=== PATIENT | male | born 1975 | race Hispanic/Latino ===

== ENCOUNTER 2025-04-10 22:30 | Emergency (ER) | payer BC ==
[~2025-04-10] VITALS: Ht 175.3 cm; Wt 102.1 kg
--- NOTE | 2025-04-10 22:33 | NUR ---
COVID AND FLU SWABS COLLECTED AND SENT
[2025-04-10 23:08] LABS: SARS-CoV-2, RNA, NAAT NEGATIVE SARS CoV-2 (NEGATIVE)
[2025-04-10 23:14] LABS: INFLUENZA TYPE A Negative For Type A (NEGATIVE); INFLUENZA TYPE B Negative For Type B (NEGATIVE)
--- NOTE | 2025-04-10 23:22 | ERN ---
ED Note History of Present Illness Stated Complaint: COUGH, CHEST CONGESTION Chief Complaint: Cough Time Seen by MD: 22:33 Time Seen by Midlevel: 22:33 Dictation: The Patient is a 49-year-old male with no significant past medical history who presents to the emergency department with complaints of nasal congestion, productive cough. Patient reports green sputum. Patient reports symptoms has been going on for past three days. Reports some shortness of breath. Reports he had fevers yesterday but no fevers today. Allergies: Coded Allergies: No Known Allergies (Unverified Allergy, Unknown, 04/10/25) Past Medical History Past Medical History: No Pertinent History Surgical History: None RN Note Reviewed/Agreed w/PFSH: Yes Review of System Dictation Constitutional: Negative for fever,chills, and weight loss Eyes: Negative for injury, pain,redness, and discharge ENT: Negative for injury,pain or swelling positive for nasal congestion Cardiovascular: Negative for chest pain, palpitations, and edema Respiratory: Negative for wheezing, positive for shortness of breath, cough Abdomen/GI: Negative for abdominal pain, nausea, vomiting, diarrhea, and constipation Back: Negative for injury and pain : Negative for injury, bleeding and discharge MS/Extremity: Negative for injury and deformity Skin: Negative for rash, and discoloration Neuro: Negative for headache, weakness, numbness, tingling, and seizure Psych: Negative for suicide ideation, homicidal ideation, and hallucinations Initial Vital Sign VS Vital Signs Date Time Temp Pulse Resp B/P (MAP) Pulse Ox O2 Delivery O2 Flow Rate FiO2 04/10/25 22:32 98.2 93 20 141/91 95 Room Air 04/10/25 23:38 0 21 Physical Exam Dictation Vital Signs reviewed General Appearance: Alert, oriented x 3, no acute distress, well developed, nourished. Head and Face: non-traumatic. Eyes: PERRL, pink conjunctivas, eyelid no trauma, anterior chamber with arcus senilis. Ears: Pinnas intact and no signs of trauma or erythema ear canals clear and no discharge TM no erythema Nose: No discharge, no bleeding. Oropharynx: Mouth normal, tongue pink. pharynx clear,no erythema, tonsils no exudates, no abscesses noted, mucous membrane moist Neck: Supple, non-tender, no thyromegaly, no masses, no JVD, no bruits Breast:Deferred Chest:No tenderness, no crepitus, no paradoxical movement, no retractions Lungs:Clear, well-ventilated, symmetric, no rales, no wheezing, no rhonchi, no stridor, good breath sounds bilaterally Heart: Regular rate, regular rhythm, no murmur, no gallops Vascular: no peripheral edema, Abdomen: Soft, positive bowel sounds, nondistended, no guarding, nontender, no rebound, no masses no hepatomegaly, no splenomegaly, no Mckeon's sign, no hernias. Rectal: Deferred Genital: Deferred Neurological: Normal speech, motor function intact, sensory function intact Musculoskeletal: Neck nontender, full range of motion, back nontender, full range of motion, Extremities: nontender, full range of motion Skin: Color pink, dry, no turgor, no rash, no lacerations, no abrasions, no contusions. Lymphatic: Deferred Results (Laboratory/Radiology) Laboratory/Radiology Laboratory Tests Test 04/10/25 01:02 Influenza Type A Antigen Negative For Type A Influenza Type B Antigen Negative For Type B SARS-CoV-2, RNA, NAAT NEGATIVE SARS CoV-2 REASON: COUGH, PRODUCTIVE, GREEN IN COLOR. CHEST CONGESTION. 4 DAYS ORDERING PHYSICIAN: GINNY MASSEY MD PROCEDURE: CXR1VW - CHEST 1VW EXAM: X-Ray Chest, 1 view. CLINICAL HISTORY: Productive cough, chest congestion for 4 days. COMPARISON: None. FINDINGS: The lungs show no infiltrate or other acute findings. No pleural effusion or pneumothorax. The cardiomediastinal silhouette is within normal limits. No acute osseous abnormality. IMPRESSION: No acute cardiopulmonary pathology is evident. /[place] Labs Reviewed?: Yes ED Course ED Course Orders Procedure Category Date Status Time Covid Rna Naat LAB 04/10/25 Complete 22:33 Influenza Type A & B, LAB 04/10/25 Complete Rapid 22:33 Chest 1vw RAD 04/10/25 Resulted 22:33 Ipratropium/Albuterol PHA 04/10/25 Complete Neb (Duoneb) 23:00 Dexamethasone 4mg/Ml PHA 04/10/25 Complete 1ml Vial (Dexametha 23:00 Guaifenesin-Codeine PHA 04/10/25 Complete Syrup 5ml (Robitussi 23:00 Current Medications Medications (Trade) Dose Ordered Sig/Liana Route PRN Reason Start Time Stop Time Status Last Admin Dose Admin Albuterol (DUOneb) 1 UDVIAL ONCE ONCE IH 04/10/25 23:00 04/10/25 23:01 DC 04/11/25 00:09 Dexamethasone Sodium Phosphate (dexaMETHasone 4MG/ML 1ML VIAL) 6 mg ONCE ONCE IM 04/10/25 23:00 04/10/25 23:01 DC Guaifenesin/ Codeine Phosphate (RobiTUSSin AC 5 ML SYRUP) 10 ml ONCE ONCE PO 04/10/25 23:00 04/10/25 23:01 DC 04/11/25 00:14 Vital Signs Date Time Temp Pulse Resp B/P (MAP) Pulse Ox O2 Delivery O2 Flow Rate FiO2 04/11/25 00:08 94 18 04/10/25 23:38 98.4 94 18 128/77 95 Room Air* 0 21 04/10/25 22:32 98.2 93 20 141/91 95 Room Air Medical Decision Making MDM The Patient is a 49-year-old male with no significant past medical history who presents to the emergency department with complaints of nasal congestion, productive cough. Patient reports green sputum. Patient reports symptoms has been going on for past three days. Reports some shortness of breath. Reports he had fevers yesterday but no fevers today. Serology was negative. Chest x-ray showed no acute infiltrates. Patient has symptoms consistent with a an upper respiratory infection. On physical exam patient is in no acute distress, nontoxic appearance, stable vital signs we will discharged to follow up with PCP Differential diagnosis: URI, pneumonia, bronchitis Need for hospitalization: Patient does not meet criteria for hospitalization. There are no social concerns with this patient. DX & DISP Disposition: Discharge Departure Impression: Primary Impression: URI with cough and congestion Condition: Stable Additional Instructions: Your x-ray did not show any pneumonia. Your symptoms are related to a viral upper respiratory infection. Please follow up with your primary doctor in 1-2 days. If anything worsens please return to ER. FOLLOW-UP WITH PRIMARY CARE PROVIDER IN 1 TO 2 DAYS. TAKE MEDICATIONS DIRECTED HERE IN THE EMERGENCY ROOM. OKAY TO CONTINUE HOME MEDICATIONS UNLESS OTHERWISE DISCUSSED DURING YOUR VISIT IN THE EMERGENCY ROOM TODAY. RETURN TO YOUR NEAREST EMERGENCY ROOM IF SYMPTOMS WORSEN OR IF THERE IS NO IMPROVEMENT. CALL 911 IF YOU NEED IMMEDIATE ASSISTANCE. TAKE TYLENOL KRBH-NMR-[id number] NEEDED AND IF NO CONTRAINDICATIONS ARE PRESENT. INCREASE ORAL HYDRATION. A WOUND CULTURE OR URINE CULTURE WAS ORDERED HERE IN THE EMERGENCY ROOM DEPARTMENT PLEASE FOLLOW-UP WITH PRIMARY CARE PROVIDER AND ADVISE THEM TO GET REPEAT PORTS FROM OUR FACILITY. IF YOU HAD ANY MERISSA WRAP/SPLINTS THAT WERE APPLIED HERE, PLEASE DO NOT REMOVE THEM UNTIL YOU SEE YOUR PRIMARY CARE OR SPECIALTY. Time of Disposition: 00:17 I have reviewed the case, and I agree with, Diagnosis and Plan ANAIS WILDER Apr 10, 2025 23:22
--- NOTE | 2025-04-10 23:55 | HMCIMG ---
EXAM: X-Ray Chest, 1 view. CLINICAL HISTORY: Productive cough, chest congestion for 4 days. COMPARISON: None. FINDINGS: The lungs show no infiltrate or other acute findings. No pleural effusion or pneumothorax. The cardiomediastinal silhouette is within normal limits. No acute osseous abnormality. IMPRESSION: No acute cardiopulmonary pathology is evident. /[place]
[2025-04-11 00:08] VITALS: PULSE 94; RESP 18
[2025-04-11 00:24] VITALS: BP 124/80; PULSE 90; RESP 18; TEMP 98; O2SAT 95
== END 2025-04-11 00:31 | disposition home or self-care (01) ==
LOC: EDH 22:30
DX: J06.9 Acute upper respiratory infection, unspecified (principal); R05.9 Cough, unspecified; R09.81 Nasal congestion; Z20.822 Contact with and (suspected) exposure to COVID-19
CPT/HCPCS: 99284; 71045; 87635; 87804 ×2; 96372; 94640; J1100